=== PATIENT | male | born 1945 | race Hispanic/Latino ===

== ENCOUNTER 2021-11-11 06:53 | Day surgery (SDC) | payer OTHER ==
[2021-11-11] MEDS: NA CHLORIDE 0.9% 1,000 ML ONE ×2 (07:30→07:50)
[2021-11-11 08:06] VITALS: O2SAT 100
[2021-11-11] MEDS ORDERED: propofoL 200 MG/20 ML VIAL IV ONE (08:18)
[2021-11-11] MEDS ORDERED: GLYCOPYRROLATE 0.2 MG/ML SYR ONE (08:18)
[2021-11-11] MEDS ORDERED: LIDOCAINE 1% MPF 30 ML VIAL ONE (08:19)
--- NOTE | 2021-11-11 08:55 | ENDO RPT ---
[address], [address] COLONOSCOPY PROCEDURE REPORT EXAM DATE: 11/11/2021 PATIENT NAME: Monica Avila MR #: [id number] BIRTHDATE: 1945 ATTENDING: Hugo Nixon MD STATUS: outpatient NET WASHER: Jesenia Cee RN and Sandy Fitzpatrick INDICATIONS: The patient is a 76 yr old Male here for a colonoscopy due to colon cancer screening PROCEDURE PERFORMED: Colonoscopy MEDICATIONS: Per Anesthesia. ESTIMATED BLOOD LOSS: None CONSENT: The patient understands the risks and benefits of the procedure and understands that these risks include, but are not limited to: sedation, allergic reaction, infection, perforation and/or bleeding. Alternative means of evaluation and treatment include, among others: physical exam, x-rays, and/or surgical intervention. The patient elects to proceed with this endoscopic procedure. DESCRIPTION OF PROCEDURE: During intra-op preparation period all mechanical medical equipment was checked for proper function. Hand hygiene and appropriate measures for infection prevention was taken. Procedure, possible complications, alternatives including, but not limited to possibility of bleeding, perforation, tear, infection, sepsis, need for surgery, need for blood transfusion, were explained to the patient. After the risks, benefits and alternatives of the procedure were thoroughly explained, Informed consent was verified, confirmed and timeout was successfully executed by the treatment team. The patient was placed in the left lateral position. After appropriate level of anesthesia, the scope was passed. The EC-[id number] ([id number]) endoscope was introduced through the anus and advanced to the cecum, which was identified by transillumination from the light source, the appendix, and the ileocecal valve. The quality of the prep was fair. The instrument was then slowly withdrawn as the colon was fully examined. Scope withdrawal time was . COLON FINDINGS: Internal and external hemorrhoids were found. Retroflexed views revealed no abnormalities. The scope was then completely withdrawn from the patient and the procedure terminated. ADVERSE EVENTS: There were no complications. IMPRESSIONS: Internal and external hemorrhoids RECOMMENDATIONS: 1. hemorrhoidal hygiene 2. follow-up: office 1-2 week(s) RECALL: Return in 5-10 year(s) for Colonoscopy. Hugo Nixon MD eSigned: Hugo Nixon MD 11/11/2021 8:54 AM cc: Hugo Nixon M.D. CPT CODES: ICD9 CODES: PATIENT NAME: Austin Monica ParkerAmarilis MR#: [id number]
[2021-11-11 09:27] VITALS: BP 127/64; TEMP 97.6
== END 2021-11-11 09:39 | disposition home or self-care (01) ==
LOC: OR 06:53
PROVIDERS: ATTEND Surgery
PROC: 0DJD8ZZ Inspection of Lower Intestinal Tract, Via Natural or Artificial Opening Endoscopic (ICD-10-PCS; principal; 2021-11-11 08:30)
DX: R10.31 Right lower quadrant pain (principal); R19.4 Change in bowel habit; K64.4 Residual hemorrhoidal skin tags; K64.8 Other hemorrhoids; Z20.822 Contact with and (suspected) exposure to COVID-19
CPT/HCPCS: 82947; 45378; U0003; J2704; J7030